=== PATIENT | male | born 1955 | race American Indian/Alaskan Native ===

== ENCOUNTER 2019-09-08 06:08 | Emergency (ER) | payer MEDICAID ==
[2019-09-08 06:21] VITALS: BP 125/86
--- NOTE | 2019-09-08 06:53 | Emergency Department Report ---
HPI - General Chief Complaint: Extremity Injury, Lower - HPI HPI: 64-year-old -Nepalese male presents to the emergency department with complaint of pain to the left ankle, the bottom of the left lower leg, and behind his knee, since he twisted his leg while going up into the attic on 08/30/19. Patient has had some swelling around the foot and ankle and has been using some alcohol and witch anais. He has also been taking some ibuprofen. He is unable to bear weight secondary to pain. He has a past medical history of hypertension and hepatitis C. He has a primary care physician but has not seen them regarding the symptoms. ED Past Medical Hx - Past Medical History Previous Medical History?: Yes Hx Hypertension: Yes Additional medical history: Hep c - Surgical History Past Surgical History?: Yes Additional Surgical History: APPY, - Social History Smoking Status: Current Every Day Smoker Substance Use Type: Marijuana - Medications Home Medications: Home Medications Medication Instructions Recorded Confirmed Last Taken Type traMADoL [Ultram 50 MG tab] 50 mg PO Q6HR PRN #10 tablet 09/08/19 Unknown Rx ED Review of Systems ROS: Stated complaint: ANKLE, KNEE, AND THIGH PAIN Other details as noted in HPI Comment: All other systems reviewed and negative Constitutional: denies: chills, fever Musculoskeletal: arthralgia, myalgia Skin: denies: rash, lesions Neurological: denies: numbness, paresthesias Physical Exam - Physical Exam Vital Signs: Vital Signs 09/08/19 06:15 Temperature 97.8 F Pulse Rate 87 Respiratory 20 Rate Blood Pressure 125/86 O2 Sat by Pulse 95 Oximetry Physical Exam: GENERAL: The patient is well-developed well-nourished. HENT: Normocephalic. Atraumatic. Patient has moist mucous membranes. EYES: Extraocular motions are intact. NECK: Supple. Trachea is midline. ABDOMEN: There is no abdominal distention. SKIN: Skin is warm and dry. No appreciable swelling to the left ankle or left leg. NEURO: The patient is awake, alert, and oriented. The patient is cooperative. The patient has no focal neurologic deficits. Normal speech. MUSCULOSKELETAL: There is some tenderness to palpation to the left lateral and anterior ankle but otherwise no deformity. +2 over 4 dorsalis pedis pulse. Negative anterior and posterior drawer test and no laxity with valgus or varus stress of the left knee. ED Course Vital Signs 12/06/19 06:15 Temperature 97.8 F Pulse Rate 87 Respiratory 20 Rate Blood Pressure 125/86 O2 Sat by Pulse 95 Oximetry ED Medical Decision Making - Radiology Data Radiology results: image reviewed interpreted by me: X-ray of the left ankle and left knee do not show any fractures, dislocations or any acute processes. - Medical Decision Making Patient has a 9 or 10 day history of some left ankle pain since he twisted it while going up into his attic. More recently he has had some posterior left knee pain as well. There is no swelling of the left lower extremity seen on physical examination, although the patient complained of some distal leg swelling when the injury first occurred. He is neurovascularly intact. X-rays were done of the left ankle and knee that did not show any fractures, dislocations, or any acute processes. The patient already has crutches. He will be given a splint and referrals for orthopedics. He will return to the ER with any worsening of his symptoms or any acute distress. - Differential Diagnosis fracture, dislocation, ligament/tendon injury, contusion Critical Care Time: No Critical care attestation.: If time is entered above; I have spent that time in minutes in the direct care of this critically ill patient, excluding procedure time. ED Disposition Clinical Impression: Left ankle pain Qualifiers: Chronicity: acute Qualified Code(s): M25.572 - Pain in left ankle and joints of left foot Knee pain Qualifiers: Chronicity: acute Laterality: left Qualified Code(s): M25.562 - Pain in left knee Disposition: - TO HOME OR SELFCARE Is pt being admited?: No Condition: Stable Instructions: Knee Pain (ED), Arthralgia (ED) Additional Instructions: I'm giving you a referral for 2 different local orthopedic groups, Dr. Butler and Corrina, to follow up regarding your ankle and knee pains. Return to the emergency Department with any worsening of your symptoms or any acute distress. You have been prescribed a medication that is sedating and therefore should not be taken prior to driving, working, and responsible for children and in no way should be mixed with alcohol of any quantity. Prescriptions: traMADoL [Ultram 50 MG tab] 50 mg PO Q6HR PRN #10 tablet PRN Reason: Pain Referrals: ALDEN BUTLER MD [Staff Physician] - 2-3 Days [facility] [Provider Group] - 2-3 Days Time of Disposition: 07:42
--- NOTE | 2019-09-08 07:39 | XRay Report ---
LEFT KNEE, 3 VIEWS INDICATION: left knee pain. COMPARISON: None. IMPRESSION: No acute osseous or soft tissue abnormality. Mild calcinosis of the lateral meniscus is identified. The joint space is within normal limits otherwise. LEFT ANKLE, 3 VIEWS INDICATION: Ankle pain. COMPARISON: None. IMPRESSION: No acute osseous or soft tissue abnormality. Mild osteoarthritic changes are identifi ed. Small plantar spur. Signer Name: Milan Isbell Jr, MD Signed: 09/08/2019 7:34 AM Workstation Name: [id number]
== END 2019-09-08 08:13 | disposition home or self-care (01) ==
LOC: ED 06:08
DX: M25.572 Pain in left ankle and joints of left foot (principal); M25.562 Pain in left knee; I10 Essential (primary) hypertension; F17.200 Nicotine dependence, unspecified, uncomplicated; F12.10 Cannabis abuse, uncomplicated

== ENCOUNTER 2019-10-22 11:52 | Emergency (ER) | payer MEDICAID ==
[2019-10-22] MEDS ORDERED: HEPARIN 10,000 UNITS/10 ML VIAL IV ONE (12:12)
--- NOTE | 2019-10-22 12:12 | Emergency Department Report ---
ED Chest Pain HPI - General Chief Complaint: Chest Pain Stated Complaint: POSS M.I. Time Seen by Provider: 10/22/19 11:54 Source: patient, EMS Mode of arrival: Stretcher Limitations: No Limitations - History of Present Illness Initial Comments: 64-year-old male with a past medical history hypertension, "OR" 5 years ago, and liver problem (denies alcohol abuse ? hepatitis) presents to Hospital complaining of acute onset of chest pain 20 minutes prior to arrival. Pain is in the mid chest area described as sharp, constant, without aggravating or allev iating factors. Mild shortness of breath without nausea, or vomiting. Patient received nitroglycerin times one aspirin around to the hospital via EMS without improvement in symptoms. Patient reports having an OR 5 years ago but does not currently have a refrigerator car icer, denies stent placement, does not take an aspirin daily. EMS EKG was transmitted and reviewed with refrigerator car icer. Suspicious for inferior infarct. EKG was repeated upon arrival. Patient typically goes to [facility] and therefore there is not a previous cardiac workup or EKG available in [facility] for comparison. + smoker pt reports that Morphine causes him to hallucinate - Related Data Previous Rx's Medication Instructions Recorded Last Taken Type traMADoL [Ultram 50 MG tab] 50 mg PO Q6HR PRN #10 tablet 09/08/19 Unknown Rx Allergies Allergy/AdvReac Type Severity Reaction Status Date / Time No Known Allergies Allergy Unverified 10/22/19 12:06 Heart Score - HEART Score History: Highly suspicious EKG: Significant ST-depression Age: 45-65 Risk factors: > 3 risk factors or hx of atherosclerotic disease Troponin: < normal limit HEART Score: 7 ED Review of Systems ROS: Stated complaint: POSS M.I. Other details as noted in HPI Comment: All other systems reviewed and negative ED Past Medical Hx - Past Medical History Hx Hypertension: Yes Additional medical history: Hep c - Surgical History Additional Surgical History: APPENDECTOMY, - Social History Smoking Status: Current Every Day Smoker Substance Use Type: Marijuana - Medications Home Medications: Home Medications Medication Instructions Recorded Confirmed Last Taken Type traMADoL [Ultram 50 MG tab] 50 mg PO Q6HR PRN #10 tablet 09/08/19 Unknown Rx ED Physical Exam - General Limitations: No Limitations - Other Other exam information: General: No limitations, patient is alert in no acute distress Head exam: Atraumatic, normocephalic Eyes exam: Normal appearance ENT: Moist mucous membrane Neck exam: Normal inspection, full range of motion, no meningismus nontender Respiratory exam: Clear to auscultation bilateral, no wheezes, rales, crackles Cardiovascular: Irregular rhythm, chest wall nontender Abdomen: Soft, nondistended, and nontender, with normal bowel sounds, no rebound, or guarding Extremity: Full range of motion normal inspection no deformity, no calf tenderness, leg edema Back: Normal Inspection, full range of motion, no tenderness Neurologic: Alert, oriented x3, cranial nerves intact, no motor or sensory deficit Psychiatric: normal affect, normal mood Skin: Warm, dry, intact ED Course Vital Signs 10/22/19 10/22/19 12:54 13:04 Temperature 98.3 F Pulse Rate 102 H Respiratory 20 20 Rate Blood Pressure 141/94 [Left] O2 Sat by Pulse 100 Oximetry - Consultations Consultation #1: 10/22/19 11:46 EMS EKG reviewed by refrigerator car icer Dr. Kiser, plan to repeat upon arrival and look up prior for comparison track laborer activate after repeat ekg 12:[address] Ochoa and cath team in route to the hospital 10/22/19 14:[address] Mir informed pt in track laborer and and will need admission. CCU bridge orders placed. 10/22/19 14:[address] Ochoa, pt requires cabg and will be transferred DEEDEE score - Deedee Score Age > 65: (0) No Aspirin use within the Past 7 Days: (0) No 3 or more CAD Risk Factors: (1) Yes 2 or more Angina events in past 24 hrs: (0) No Known CAD with more than 50% Stenosis: (0) No Elevated Cardiac Markers: (0) No ST Deviation Greater than 0.5mm: (1) Yes DEEDEE Score: 2 ED Medical Decision Making - Lab Data Result diagrams: 10/22/19 12:12 10/22/19 12:12 Lab Results 10/22/19 10/22/19 10/22/19 Range/Units 12:12 12:12 12:12 WBC 10.7 (4.5-11.0) K/mm3 RBC 5.05 H (3.65-5.03) M/mm3 Hgb 14.6 (11.8-15.2) gm/dl Hct 43.8 (35.5-45.6) % MCV 87 (84-94) fl MCH 29 (28-32) pg MCHC 33 (32-34) % RDW 14.6 (13.2-15.2) % Plt Count 366 (140-440) K/mm3 Lymph % (Auto) 29.7 (13.4-35.0) % [place] % (Auto) 7.3 (0.0-7.3) % Eos % (Auto) 0.6 (0.0-4.3) % Baso % (Auto) 0.9 (0.0-1.8) % Lymph # 3.2 (1.2-5.4) K/mm3 [place] # 0.8 (0.0-0.8) K/mm3 Eos # 0.1 (0.0-0.4) K/mm3 Baso # 0.1 (0.0-0.1) K/mm3 Seg Neutrophils % 61.5 (40.0-70.0) % Seg Neutrophils # 6.6 (1.8-7.7) K/mm3 PT 14.0 (12.2-14.9) Sec. INR 1.07 (0.87-1.13) APTT 28.9 (24.2-36.6) Sec. Sodium TNR Potassium TNR Chloride TNR Carbon Dioxide TNR Anion Gap TNR BUN TNR Creatinine TNR Estimated GFR TNR BUN/Creatinine Ratio TNR Glucose TNR Calcium TNR Total Bilirubin TNR AST TNR ALT TNR Alkaline Phosphatase TNR Troponin T < 0.010 (0.00-0.029) ng/mL Total Protein TNR Albumin TNR Albumin/Globulin Ratio TNR - EKG Data -: EKG Interpreted by Me (atrial fib, ) EKG shows normal: ST-T waves (st elevation inf, ant st depression r wave - acute inf and posterior infarct) - Medical Decision Making intitial ems ekg reviewed by itself and refrigerator car icer with suspicion for acute infarct. Upon arrival we realize no previous EKG was available for comparison. Patient significant pain with repeat EKG revealing possible acute inferior posterior OR findings and rhythm changed from sinus to atrial fibrillation. code STEMI was called after the EKG and Promotional Marketing Agent was activated. Patient received asa And nitroglycerin in route. Patient to the ED with nitroglycerin drip, Dilaudid, and heparin bolus. Initial chest x-ray shows a narrow mediastinum. Dialudid improved pain without adverse reaction and improvement in mild tachycardia with pain relief. cmp sample hemolyzed Critical Care Time: No Critical care attestation.: If time is entered above; I have spent that time in minutes in the direct care of this critically ill patient, excluding procedure time. ED Disposition Clinical Impression: STEMI (ST elevation myocardial infarction), New onset atrial fibrillation Disposition: OP ADMIT IP TO THIS HOSP Is pt being admited?: Yes Condition: Stable Time of Disposition: 12:50
[2019-10-22] MEDS ORDERED: ONDANSETRON 4 MG/2 ML INJ IV ONE (12:13)
[2019-10-22] MEDS ORDERED: HYDROmorphone 1 MG/1 ML INJ IV ONE (12:13)
[2019-10-22] MEDS ORDERED: NITROGLYCERIN DRIP 50 MG/250 ML BOTTLE IV ONE (12:20)
[2019-10-22 12:28] LABS: Basophils # (Auto) 0.1 K/mm3 (0.0-0.1); Basophils % (Auto) 0.9 % (0.0-1.8); Eosinophils # (Auto) 0.1 K/mm3 (0.0-0.4); Eosinophils % (Auto) 0.6 % (0.0-4.3); Hematocrit 43.8 % (35.5-45.6); Hemoglobin 14.6 gm/dl (11.8-15.2); Lymphocytes # (Auto) 3.2 K/mm3 (1.2-5.4); Lymphocytes % (Auto) 29.7 % (13.4-35.0); Mean Corpuscular HGB Conc 33 % (32-34); Mean Corpuscular Volume 87 fl (84-94); Monocytes # (Auto) 0.8 K/mm3 (0.0-0.8); Monocytes % (Auto) 7.3 % (0.0-7.3); Platelet Count 366 K/mm3 (140-440); Red Blood Count 5.05 M/mm3 (3.65-5.03); Red Cell Distribution Width 14.6 % (13.2-15.2)
[2019-10-22 12:38] LABS: INR 1.07 (0.87-1.13)
[2019-10-22 12:39] LABS: Partial Thromboplastin Time 28.9 Sec. (24.2-36.6)
--- NOTE | 2019-10-22 12:42 | XRay Report ---
CHEST 1 VIEW INDICATION / CLINICAL INFORMATION: Chest Pain. COMPARISON: None available. FINDINGS: SUPPORT DEVICES: None. HEART / MEDIASTINUM: No significant abnormality. LUNGS / PLEURA: No significant pulmonary or pleural abnormality. No pneumothorax. ADDITIONAL FINDINGS: No significant additional findings. IMPRESSION: 1. No significant change Signer Name: Olvin Blancas MD Signed: 10/22/2019 12:38 PM Workstation Name: [id number]
[2019-10-22] MEDS ORDERED: HEPARIN/NS 5000 UNIT/500ML 1,000 ML IR ONE (12:45)
[2019-10-22] MEDS ORDERED: MIDAZOLAM 2 MG/2 ML INJ ONE (12:46)
[2019-10-22] MEDS ORDERED: fentaNYL 100 MCG/2 ML INJ ONE (12:46)
[2019-10-22] MEDS ORDERED: VERAPAMIL 5 MG/2 ML INJ ONE (12:46)
[2019-10-22] MEDS ORDERED: NITROGLYCERIN SYRINGE 3 ML ONE (12:47)
[2019-10-22] MEDS ORDERED: LIDOCAINE (2%) 20 MG/1 ML VIAL 20 ML MDV INFILTRATI ONE (12:47)
[2019-10-22] MEDS ORDERED: SODIUM CHLORIDE 0.9% 500 ML 500 ML ONE ×2 (12:52→14:45)
[2019-10-22 12:55] VITALS: BP 141/94
[2019-10-22] MEDS ORDERED: NITROGLYCERIN DRIP 50 MG/250 ML BOTTLE IV SCH (13:00)
[2019-10-22] MEDS: HEPARIN 10,000 UNITS/10 ML VIAL ONE ×2 (13:02→13:15)
[2019-10-22] MEDS ORDERED: ATROPINE 0.1% (1 MG/10 ML) CARDIAC SYRINGE ONE (13:20)
[2019-10-22] MEDS ORDERED: DOPamine/D5W 800 MG/250 ML 800 MG/250 ML BAG IV ONE (13:21)
[2019-10-22] MEDS ORDERED: PHENYLEPHRINE 10 MG/1 ML INJ SDV ONE (13:24)
[2019-10-22] MEDS ORDERED: PHENYLEPHRINE/NS 1,000 MCG/10 ML SYRINGE (OR USE) IV ONE (13:24)
[2019-10-22 13:30] LABS: BUN/Creatinine Ratio TNR; Blood Urea Nitrogen TNR mg/dL (9-20)
[2019-10-22 13:31] LABS: Alanine Aminotransferase TNR units/L (7-56); Albumin TNR g/dL (3.9-5); Calcium TNR mg/dL (8.4-10.2); Hemolysis Index TNR
[2019-10-22] MEDS ORDERED: HEPARIN/ 0.45% NACL DRIP 25,000 UNIT/500 ML BAG ONE (13:31)
[2019-10-22] MEDS ORDERED: HEPARIN/NS 5000 UNIT/500ML 500 ML IR ONE (13:32)
[2019-10-22] MEDS ORDERED: AMIODARONE 150 MG/3 ML INJ IV ONE (13:36)
[2019-10-22] MEDS ORDERED: AMIODARONE 900 MG in DEXTROSE 5% IN WATER 482 ML IV SCH (14:00)
--- NOTE | 2019-10-22 14:14 | History and Physical Report ---
History of Present Illness Date of examination: 10/22/19 Medications and Allergies Allergies Allergy/AdvReac Type Severity Reaction Status Date / Time No Known Allergies Allergy Unverified 10/22/19 12:06 Home Medications Medication Instructions Recorded Confirmed Last Taken Type traMADoL [Ultram 50 MG tab] 50 mg PO Q6HR PRN #10 tablet 09/08/19 Unknown Rx Active Meds: Active Medications Nitroglycerin/Dextrose (Tridil Drip 50mg/250ml) 50 mg in 250 mls @ 3 mls/hr IV TITR ONE; Protocol Stop: 10/25/19 23:39 Last Admin: 10/22/19 12:25 Dose: 10 mcg/min, 3 mls/hr Documented by: Amiodarone HCl 900 mg/ (Dextrose) 500 mls @ 16.6 mls/hr IV DIRECT LUKE Last Admin: 10/22/19 14:08 Dose: 33.33 mls Documented by: Exam - Constitutional Vitals: Temp Pulse Resp BP Pulse Ox 98.3 F 102 H 20 141/94 100 10/22/19 12:54 10/22/19 12:54 10/22/19 13:04 10/22/19 12:54 10/22/19 12:54 General appearance: Present: no acute distress, well-nourished - EENT Eyes: Present: PERRL ENT: hearing intact, clear oral mucosa - Neck Neck: Present: supple, normal ROM - Respiratory Respiratory effort: normal Respiratory: bilateral: CTA - Cardiovascular Heart Sounds: Present: S1 & S2. Absent: rub, click - Extremities Extremities: pulses symmetrical, No edema Peripheral Pulses: within normal limits - Abdominal General gastrointestinal: Present: soft, non-tender, non-distended, normal bowel sounds Male genitourinary: Present: normal - Integumentary Integumentary: Present: clear, warm, dry - Musculoskeletal Musculoskeletal: gait normal, strength equal bilaterally - Psychiatric Psychiatric: appropriate mood/affect, intact judgment & insight - Neurologic Neurologic: CNII-XII intact, moves all extremities DEEDEE score - Deedee Score Age > 65: (0) No Aspirin use within the Past 7 Days: (0) No 3 or more CAD Risk Factors: (1) Yes 2 or more Angina events in past 24 hrs: (0) No Known CAD with more than 50% Stenosis: (0) No ST Deviation Greater than 0.5mm: (1) Yes Results - Labs CBC & Chem 7: 10/22/19 12:12 10/22/19 12:12 Labs: Laboratory Last Values WBC 10.7 K/mm3 (4.5-11.0) 10/22/19 12:12 RBC 5.05 M/mm3 (3.65-5.03) H 10/22/19 12:12 Hgb 14.6 gm/dl (11.8-15.2) 10/22/19 12:12 Hct 43.8 % (35.5-45.6) 10/22/19 12:12 MCV 87 fl (84-94) 10/22/19 12:12 MCH 29 pg (28-32) 10/22/19 12:12 MCHC 33 % (32-34) 10/22/19 12:12 RDW 14.6 % (13.2-15.2) 10/22/19 12:12 Plt Count 366 K/mm3 (140-440) 10/22/19 12:12 Lymph % (Auto) 29.7 % (13.4-35.0) 10/22/19 12:12 [place] % (Auto) 7.3 % (0.0-7.3) 10/22/19 12:12 Eos % (Auto) 0.6 % (0.0-4.3) 10/22/19 12:12 Baso % (Auto) 0.9 % (0.0-1.8) 10/22/19 12:12 Lymph # 3.2 K/mm3 (1.2-5.4) 10/22/19 12:12 [place] # 0.8 K/mm3 (0.0-0.8) 10/22/19 12:12 Eos # 0.1 K/mm3 (0.0-0.4) 10/22/19 12:12 Baso # 0.1 K/mm3 (0.0-0.1) 10/22/19 12:12 Seg Neutrophils % 61.5 % (40.0-70.0) 10/22/19 12:12 Seg Neutrophils # 6.6 K/mm3 (1.8-7.7) 10/22/19 12:12 PT 14.0 Sec. (12.2-14.9) 10/22/19 12:12 INR 1.07 (0.87-1.13) 10/22/19 12:12 APTT 28.9 Sec. (24.2-36.6) 10/22/19 12:12 Sodium TNR 10/22/19 12:12 Potassium TNR 10/22/19 12:12 Chloride TNR 10/22/19 12:12 Carbon Dioxide TNR 10/22/19 12:12 Anion Gap TNR 10/22/19 12:12 BUN TNR 10/22/19 12:12 Creatinine TNR 10/22/19 12:12 Estimated GFR TNR 10/22/19 12:12 BUN/Creatinine Ratio TNR 10/22/19 12:12 Glucose TNR 10/22/19 12:12 Calcium TNR 10/22/19 12:12 Total Bilirubin TNR 10/22/19 12:12 AST TNR 10/22/19 12:12 ALT TNR 10/22/19 12:12 Alkaline Phosphatase TNR 10/22/19 12:12 Troponin T < 0.010 ng/mL (0.00-0.029) 10/22/19 12:12 Total Protein TNR 10/22/19 12:12 Albumin TNR 10/22/19 12:12 Albumin/Globulin Ratio TNR 10/22/19 12:12 Short CBC 10/22/19 Range/Units 12:12 WBC 10.7 (4.5-11.0) K/mm3 Hgb 14.6 (11.8-15.2) gm/dl Hct 43.8 (35.5-45.6) % Plt Count 366 (140-440) K/mm3 BMP 10/22/19 12:12 Sodium TNR Potassium TNR Chloride TNR Carbon Dioxide TNR BUN TNR Creatinine TNR Glucose TNR Calcium TNR Cardiac Enzymes 10/22/19 Range/Units 12:12 Troponin T < 0.010 (0.00-0.029) ng/mL Liver Function 10/22/19 Range/Units 12:12 Total Bilirubin TNR AST TNR ALT TNR Alkaline Phosphatase TNR Albumin TNR - Imaging and Cardiology EKG: report reviewed Assessment and Plan Advance Directives: Yes - Patient Problems (1) STEMI (ST elevation myocardial infarction) Current Visit: Yes Status: Acute
[2019-10-22] MEDS ORDERED: ZOLPIDEM 5 MG TAB PO PRN (14:15)
[2019-10-22] MEDS ORDERED: MORPHINE 2 MG/1 ML INJ IV PRN (14:15)
[2019-10-22] MEDS ORDERED: oxyCODONE /ACETAMINOPHEN 5-325MG TAB PO PRN (14:15)
[2019-10-22] MEDS ORDERED: HYDROmorphone 1 MG/1 ML INJ IV PRN (14:15)
[2019-10-22] MEDS ORDERED: SODIUM CHLORIDE 0.9% 1000 ML 1,000 ML IV SCH (14:15)
[2019-10-22] MEDS ORDERED: FAMOTIDINE 20 MG/2 ML INJ IV SCH (15:00)
--- NOTE | 2019-10-22 17:02 | Cardiac Catherization Report ---
LEFT HEART CATHETERIZATION FOLLOWED BY INTRAAORTIC BALLOON PUMP AND CENTRAL LINE PLACEMENT INDICATION FOR PROCEDURE: Acute inferior ST elevation myocardial infarction. PROCEDURES PERFORMED: 1. Left heart catheterization with left and right coronary angiogram. 2. PTCA of left circumflex artery (balloon only). 3. Intraaortic balloon pump placement. 4. Central line placement. PROCEDURE NOTE: The patient is a 64-year-old gentleman who was brought by ambulance with inferior ST elevation myocardial infarction. The patient was taken to left heart catheterization. The patient's right wrist was prepared in the usual aseptic precaution. The sheath was placed in aseptic method. The left heart catheterization was done initially with a right guide because of the ST elevation in inferior leads and the right coronary has only 60% blockage, not accounting for the inferior ST elevation, hence EBU 3.5 guide placed on the left, found to have 100% occluded left circumflex artery. The patient also had 90% LAD and 90% diagonal, hence only PTCA of the circumflex artery done. No stent placed. As soon as the circumflex artery opened, the patient's blood pressure dropped significantly in the 60/40 range. The patient received IV dopamine. As pressure was still low, intraaortic balloon pump was placed from right groin area. The patient developed ventricular tachycardia, successfully cardioverted by single shock and IV amiodarone started. As patient needs multiple lines for dopamine, amiodarone as well as heparin, triple lumen central line placed in the right femoral vein. FINDINGS: 1. Left main normal. 2. Left anterior descending artery: Left anterior descending artery has 90% long proximal lesion involving the first diagonal, which has 90% lesion as well. The distal LAD got 70-80%, by which time it tapers off to a small vessel. 3. Left circumflex artery 100% occlusion. 4. Right coronary artery: Right coronary artery has 60% mid lesion. The PLV branch is a small branch, got 80% stenosis. 5. LV gram: LV gram was not done as the patient had hemodynamic instability with hypotension as well as nonsustained ventricular tachycardia. 6. LV pressure 70/47 without the balloon pump, 112/72 with balloon augmentation. 7. PTCA details: Vessel angioplastied proximal left circumflex artery, preprocedure stenosis, 100% stenosis. Pre-procedure flow DEEDEE 0 flow. Post-procedure 60-70% stenosis, DEEDEE 2-3 flow. 8. Angioplasty details: EBU 3.5 guide placed, short BMW was crossed without much difficulty. A 2.5 mm balloon used to dilate, following which the patient developed significant hypotension, hence started on inotropes as well as intraaortic balloon pump placed. IMPRESSION: The patient has significant triple vessel disease, so no stent placed. The patient started on IV heparin, IV amiodarone and arrangements made to transfer to [place] for coronary artery bypass surgery. COMPLICATIONS: The patient developed severe hypotension and needed intraaortic balloon pump. OUTCOME: Successful. The patient's chest pain resolved after opening the circumflex artery and intraaortic balloon pump placement. The patient transferred to [facility] for coronary artery bypass surgery in critical but stable condition with stable blood pressure. JOB# [id number] MS/NTS
--- NOTE | 2019-10-22 21:18 | History and Physical Report ---
REASON FOR HOSPITALIZATION: Acute inferior ST elevation myocardial infarction. HISTORY OF PRESENT ILLNESS: Mr. Easley is a 64-year-old -[place] gentleman known to have prior coronary artery disease with prior myocardial infarction but medical management hepatitis C as well as hypertension, started having chest pain about 3 hours prior to calling the ambulance. The patient described the chest pain as a precordial pain, 9/10 chest pain associated with some shortness of breath and sweating, concerned about the hot call 911. On initial EKG has inferior ST elevation myocardial infarction. Hence cath team was called in. PAST MEDICAL HISTORY: Significant for: 1. Coronary artery disease. 2. Hepatitis C. 3. Hypertension. MEDICATIONS: The patient stated he is taking medications at home for the hepatitis, but not for anything for coronary artery disease or hypertension. Unable to tell names. The patient is not on any aspirin. PERSONAL HISTORY: Denies any smoking or alcohol history. PHYSICAL EXAMINATION: GENERAL: The patient is conscious, alert, oriented, has 9/10 chest pain on arrival to laboratory coordinator. VITAL SIGNS: Heart rate 99. The patient is in atrial fibrillation. Blood pressure 118/76. HEENT: No pallor, no icterus. NECK: Supple. CARDIOVASCULAR: S1, S2 plus variable intensity. No murmur. CHEST: Air entry diminished on both bases. Few scattered rales. ABDOMEN: Soft. EXTREMITIES: Legs, no pedal edema. LABORATORY DATA: EKG done in the field shows sinus rhythm with inferior ST-elevation myocardial infarction. EKG done in the ER shows atrial fibrillation with inferior ST elevation. Other labs are awaiting. IMPRESION: 1. Acute inferior ST elevation myocardial infarction. 2. Coronary artery disease. 3. Hepatitis C disease. 4. Hypertension. PLAN: The patient had left heart catheterization, found to have 100% circumflex artery, had PTCA alone as the patient has significant 90% left anterior descending artery, 90% diagonal artery, 70% in the right coronary artery. The patient developed nonsustained ventricular tachycardia, shocked one time, converted to AFib. The patient received IV amiodarone. The patient developed hypotension, IV dopamine started as the blood pressure is still in the 70s. He had an intraaortic balloon pump in place, which augmented the blood pressure in the 110-120s systolic and 70 diastolic. The patient's chest pain resolved after angioplasty. As the patient has significant triple vessel disease, arrangement was made to transfer to [facility] for coronary artery bypass surgery. Discussed with the patient regarding the coronary artery disease and need for transfer and the patient agreed for the transfer. The patient's family/patient's updated and explained about the patient's condition prior to transfer. The patient also started on IV heparin in addition to the IV dopamine 10 mcg per minute as well as IV amiodarone 1 mg/kg. JOB# [id number] MS/NTS
[2019-10-22] MEDS ORDERED: HEPARIN 10,000 UNITS/10 ML VIAL ONE (23:00)
--- NOTE | 2019-10-23 19:11 | Event Note ---
Date: 10/22/19 64-year-old male was diagnosed with STEMI and was sent to the [facility] directly from the emergency room. Dr. Ochoa performed a left heart catheterization and the patient was sent from [facility] to [facility] for cardiac bypass. I did not have a patient encounter. Diagnosis STEMI Patient transferred to another facility
== END 2019-10-22 14:59 | disposition other institution (70) ==
LOC: ED 11:52
DX: I21.29 ST elevation (STEMI) myocardial infarction involving other sites (principal); F17.200 Nicotine dependence, unspecified, uncomplicated; F12.10 Cannabis abuse, uncomplicated; I10 Essential (primary) hypertension; Z90.49 Acquired absence of other specified parts of digestive tract; Z79.899 Other long term (current) drug therapy
CPT/HCPCS: 33967; 36415; 36556; 71045; 80053; 84484; 85025; 85610; 85730; 92920; 93005; 93010; 93454; 96365; 96366; 96368; 96375; 99284; C1725; C1751; C1769; C1887; C1894; J0282; J0461; J1170; J1265; J1644; J2250; J2370; J2405; J3010; J7040; J7060; Q9967